=== PATIENT | male | born 1935 | race Caucasian/White ===

== ENCOUNTER → 2018-11-24 | Outpatient (CLI) | payer OTHER | LOC: HYPER 06:50 | DX: E11.622 Type 2 diabetes mellitus with other skin ulcer (principal); L97.811 Non-pressure chronic ulcer of other part of right lower leg limited to breakdown of skin; L97.821 Non-pressure chronic ulcer of other part of left lower leg limited to breakdown of skin; I87.2 Venous insufficiency (chronic) (peripheral); R60.9 Edema, unspecified; Z85.828 Personal history of other malignant neoplasm of skin; Z79.4 Long term (current) use of insulin; Z87.891 Personal history of nicotine dependence ==

== ENCOUNTER → 2018-12-09 | Outpatient (CLI) | payer OTHER | LOC: HYPER 12-01 06:51 | DX: E11.622 Type 2 diabetes mellitus with other skin ulcer (principal); L97.811 Non-pressure chronic ulcer of other part of right lower leg limited to breakdown of skin; L97.821 Non-pressure chronic ulcer of other part of left lower leg limited to breakdown of skin; I87.2 Venous insufficiency (chronic) (peripheral); R60.9 Edema, unspecified; Z79.4 Long term (current) use of insulin; Z87.891 Personal history of nicotine dependence; Z85.828 Personal history of other malignant neoplasm of skin ==

== ENCOUNTER → 2018-12-23 | Outpatient (CLI) | payer OTHER | LOC: HYPER 06:55 | DX: E11.622 Type 2 diabetes mellitus with other skin ulcer (principal); L97.821 Non-pressure chronic ulcer of other part of left lower leg limited to breakdown of skin; L97.811 Non-pressure chronic ulcer of other part of right lower leg limited to breakdown of skin; S51.012A Laceration without foreign body of left elbow, initial encounter; S51.011A Laceration without foreign body of right elbow, initial encounter; I87.2 Venous insufficiency (chronic) (peripheral); R60.9 Edema, unspecified; Z79.4 Long term (current) use of insulin; Z85.6 Personal history of leukemia; Z87.891 Personal history of nicotine dependence; X58.XXXA Exposure to other specified factors, initial encounter; Y93.89 Activity, other specified; Y92.89 Other specified places as the place of occurrence of the external cause; Y99.8 Other external cause status ==

== ENCOUNTER → 2019-01-07 | Outpatient (CLI) | payer OTHER | LOC: HYPER 06:43 | DX: E11.622 Type 2 diabetes mellitus with other skin ulcer (principal); L97.811 Non-pressure chronic ulcer of other part of right lower leg limited to breakdown of skin; L97.821 Non-pressure chronic ulcer of other part of left lower leg limited to breakdown of skin; I87.2 Venous insufficiency (chronic) (peripheral); R60.9 Edema, unspecified; Z85.6 Personal history of leukemia; Z79.4 Long term (current) use of insulin; Z87.891 Personal history of nicotine dependence ==

== ENCOUNTER → 2019-01-14 | Outpatient (CLI) | payer OTHER | LOC: HYPER 06:47 | DX: E11.622 Type 2 diabetes mellitus with other skin ulcer (principal); L97.811 Non-pressure chronic ulcer of other part of right lower leg limited to breakdown of skin; L97.821 Non-pressure chronic ulcer of other part of left lower leg limited to breakdown of skin; I87.2 Venous insufficiency (chronic) (peripheral); R60.9 Edema, unspecified; Z79.4 Long term (current) use of insulin; Z85.6 Personal history of leukemia; Z87.891 Personal history of nicotine dependence ==

== ENCOUNTER → 2019-01-21 | Outpatient (CLI) | payer OTHER | LOC: HYPER 06:39 | DX: E11.622 Type 2 diabetes mellitus with other skin ulcer (principal); L97.811 Non-pressure chronic ulcer of other part of right lower leg limited to breakdown of skin; L97.821 Non-pressure chronic ulcer of other part of left lower leg limited to breakdown of skin; I87.2 Venous insufficiency (chronic) (peripheral); R60.9 Edema, unspecified; Z79.4 Long term (current) use of insulin; Z85.6 Personal history of leukemia; Z87.891 Personal history of nicotine dependence ==

== ENCOUNTER 2019-01-28 06:47 | Inpatient (IN) | payer OTHER ==
[~2019-01-28] VITALS: Ht 167.6 cm; Wt 88.0 kg
[2019-01-28 12:04] LABS: ABSOLUTE NEUTROPHILS 4.4 thou/uL (1.4-8.2); BASOPHILS 1.1 % (0.0-2.0); EOSINOPHILS 1.8 % (0.0-3.0); HEMATOCRIT 34.3 % (42.0-52.0); HEMOGLOBIN 11.1 gm/dL (14.0-18.0); LYMPHOCYTES 8.3 % (24.0-44.0); MCH 28.4 pg (26.0-34.0); MCHC 32.5 g/dL (28.0-37.0); MCV 87.5 fL (80.0-100.0); MONOCYTES 9.1 % (1.0-8.0); PLATELET COUNT 219 thou/uL (150-400); POLYS 79.7 % (36.0-66.0); RBC 3.92 mil/uL (4.50-6.00); RDW 17.4 % (10.5-14.5); WBC 5.5 thou/uL (4.0-11.0)
[2019-01-28 12:16] VITALS: BP 132/54
[2019-01-28 12:26] LABS: ALBUMIN 2.6 g/dL (3.4-5.0); CALCIUM 8.4 mg/dL (8.5-10.1); CREATININE 1.2 mg/dL (0.7-1.3); MAGNESIUM 2.1 mg/dL (1.8-2.4); TOTAL BILIRUBIN 0.5 mg/dL (<0.1-1.0); TOTAL PROTEIN 6.5 g/dL (6.4-8.2)
[2019-01-28] MEDS ORDERED: NOVOLOG MI100 UNIT/M SUBQ ×2 (13:34→14:12)
[2019-01-28] MEDS ORDERED: VITAMINC500 PO (14:01)
[2019-01-28] MEDS ORDERED: ASPIR 8181 MG PO (14:04)
[2019-01-28] MEDS ORDERED: URECHOLINE25 MG PO (14:06)
[2019-01-28] MEDS ORDERED: PROSCAR 5MG TABL5 M1 PO (14:08)
[2019-01-28] MEDS ORDERED: FLOMAX0.4 MG PO (14:09)
[2019-01-28] MEDS ORDERED: DEMADEX20 MG PO (14:10)
[2019-01-28] MEDS ORDERED: COL-RITE250 MG PO (14:19)
[2019-01-28] MEDS ORDERED: KLOR-CON 10 ER10 MEQ PO (14:20)
--- NOTE | 2019-01-28 16:18 | 2DMMODE ---
[facility] [address] [place] [address] 2 D/M-MODE ECHOCARDIOGRAM Name: ALEA FRANKS [place] Room #: 432-P [facility] IN ..#: [id number] ������������� Admission: 01/28/19 ������������� Attend Phys: Tyler Joyce, Discharge: ��� ������������� ��� Date of : 33 Date of Service: 01/28/19 1618 �� Report #: [id number] �������� ��������������������������������������������[id number] THIS REPORT FOR: //name// APPROVED REPORT Study performed: 01/28/2019 14:46:42 EXAM: Comprehensive 2D, Doppler, and color-flow Echocardiogram Patient Location: Bedside Room #: 432 Status: routine BSA: 1.97 HR: 60 bpm BP: 132/54 mmHg Rhythm: NSR Other Information Study Quality: Adequate Indications Congestive Heart Failure Pacemaker CAD Hypertension/HDD 2D Dimensions RVDd: 59.52 mm IVSd: 13.13 (7-11mm) LVOT Diam: 20.83 (18-24mm) LVDd: 46.81 mm PWd: 12.47 (7-11mm) Ascending Ao: 33.70 (22-36mm) LVDs: 44.58 (25-40mm) Aortic Root: 30.43 mm IVC: 20.00 mm Volumes Left Atrial Volume (Systole) Single Plane 4CH: 51.00 mL Single Plane 2CH: 82.12 mL LA ESV Index: 35.00 mL/m2 Aortic Valve AoV Peak Julio.: 1.08 m/s AO Peak Gr.: 4.63 mmHg LVOT Max P.48 mmHg LVOT Max V: 0.61 m/s ANT Vmax: 1.92 cm2 Mitral Valve [facility] [address] [place] [address] 2 D/M-MODE ECHOCARDIOGRAM Name: ALEA FRANKS Room #: 432-P [facility] IN [facility]#: [id number] ������������� Admission: 01/28/19 ������������� Attend Phys: Tyler Joyce, Discharge: ��� ������������� ��� Date of : 33 Date of Service: 01/28/19 1618 �� Report #: [id number] �������� ��������������������������������������������[id number] E/A Ratio: 2.9 MV Decel. Time: 148.58 ms MV E Max Julio.: 0.97 m/s MV A Julio.: 0.34 m/s MV PHT: 43.09 ms IVRT: 83.04 ms Pulmonary Valve PV Peak Julio.: 0.71 m/s PV Peak Gr.: 2.01 mmHg Pulmonary Vein P Vein S: 0.24 m/s P Vein A: 0.14 m/s P Vein D: 0.53 m/s P Vein A Dur.: 83.0 msec P Vein S/D Ratio: 0.45 Tricuspid Valve TR Peak Julio.: 3.29 m/s TR Peak Gr.: 43.36 mmHg PA Pressure: 53.00 mmHg Left Ventricle The left ventricle is normal size. There is severe global hypokinesis of the left ventricle. Mild concentric left ventricular hypertrophy. Left ventricular ejection fraction is severely decreased. LVEF is 30-35%. Severe diastolic dysfunction is present (restrictive filling). Elevated filling pressures Right Ventricle Right ventricle is dilated. Right ventricle is hypokinetic. Pacemaker lead is present in the right ventricle. Atria Left atrium is dilated. Right atrium is dilated. Pacemaker lead is present in the right atrium. Aortic Valve Aortic valve is mildly calcified. No aortic regurgitation is present. There is no aortic valvular stenosis. Mitral Valve The mitral valve is normal in structure. Mild mitral regurgitation. No evidence of mitral valve stenosis. Tricuspid Valve The tricuspid valve is normal in structure. There is mild tricuspid regurgitation. Estimated PAP 50 mmHg. There is moderate pulmonary [address] [address] 2 D/M-MODE ECHOCARDIOGRAM Name: ALEA FRANKS Room #: 432-P [facility] IN [facility]#: [id number] ������������� Admission: 01/28/19 ������������� Attend Phys: Tyler Joyce, Discharge: ��� ������������� ��� Date of : 33 Date of Service: 01/28/19 1618 �� Report #: [id number] �������� ��������������������������������������������[id number] hypertension. Pulmonic Valve The pulmonary valve is normal in structure. Trace pulmonic regurgitation. Great Vessels The aortic root is normal in size. IVC is dilated and collapses <50% with inspiration. Pericardium There is no pericardial effusion. <Conclusion> Left ventricular ejection fraction is severely decreased. Mild concentric left ventricular hypertrophy. LVEF is 30-35%. Discordant inferolateral wall motion possibly from RV pacing Severe diastolic dysfunction is present (restrictive filling). Elevated filling pressures Right ventricle is dilated and hypokinetic Both atria are dilated. Aortic valve is mildly calcified. No aortic regurgitation or stenosis. The mitral valve is normal in structure. Mild mitral regurgitation. There is mild tricuspid regurgitation. Estimated pulmonary artery pressure of 50 mmHg. There is no pericardial effusion. ��������������������������������������������� <ELECTRONICALLY SIGNED> ���������������������������������������� By: Titus Carpio MD, FACC ��������������������������������������������� 01/28/19 1618 1618 1618 Titus Carpio MD, FACC /INF
[2019-01-28 17:01] VITALS: BP 126/53
[2019-01-28 19:37] VITALS: BP 121/58
[2019-01-29 00:33] VITALS: BP 118/57
[2019-01-29 05:06] VITALS: BP 121/48
[2019-01-29 07:49] VITALS: BP 125/57
[2019-01-29 10:09] LABS: GLYCOHEMOGLOBIN (HGB A1C) 7.5 % (4.8-5.6)
[2019-01-29 16:08] VITALS: BP 112/47
[2019-01-29 19:34] VITALS: BP 105/45
--- NOTE | 2019-01-29 22:36 | HC ---
[facility] [place] [address] CONSULTATION Name: ALEA FRANKS Room #: 432-P [facility] IN M.R.#: [id number] Admission: 01/28/19 ������������������ Attend Phys: Tyler Joyce MD Discharge: ������������������ Date of : 34 Report #: [id number] THIS REPORT FOR: //name// CC: Loly Joyce DATE OF SERVICE: 01/28/2019 REASON FOR CONSULTATION: Evaluate bilateral lower extremity cellulitis. HISTORY OF PRESENT ILLNESS: The patient is an 83-year-old with underlying history of coronary artery disease and cardiomyopathy with sick sinus syndrome, permanent pacemaker, who has had chronic venous stasis disease. Over the last 2 weeks this has significantly worsened. Has occasional chills, but no fever or sweats. Has not been on any antibiotics. Has not been using any compression. Unable to control his edema. He is on no special diet other than diabetic. No evidence of peripheral neuropathy. Had previous coronary bypass and permanent pacemaker. Due to his increased discomfort, swelling, erythema and now blistering of the skin, he was admitted for further treatment. REVIEW OF SYSTEMS: He has PND and orthopnea, dyspnea on exertion. No cough or sputum production. No chest pain. Blood sugars have been erratic with hypoglycemic episodes. No other pulmonary complaints. No GI or complaints, has degenerative arthritis, which has been stable. No other neurologic complaints. No psychiatric issues. No hematologic issues or allergy issues. Skin as noted above. ALLERGIES: PENICILLIN, LISINOPRIL, reports throat swelling with his PENICILLIN. MEDICATIONS: As noted on his OCT, which were reviewed. He did receive a dose of vancomycin on admission. PAST MEDICAL HISTORY: Hypertension, hyperlipidemia, diabetes, coronary artery disease, BPH, sick sinus syndrome, seasonal allergies, cataracts, CABG, tonsillectomy, permanent pacemaker placement. FAMILY HISTORY: Noncontributory. SOCIAL HISTORY: Nonsmoker, no significant alcohol intake. PHYSICAL EXAMINATION: VITAL SIGNS: Afebrile and hemodynamically stable. NEUROPSYCHIATRY: Alert and cooperative and pleasant, in no acute distress. He did become dyspneic when lying flat in bed. EXTREMITIES: He had 4+ edema involving the lower extremities, 3+ edema to the [facility] [address] [place] [address] CONSULTATION Name: ALEA FRANKS Room #: 432-P [facility] IN ..#: [id number] Admission: 01/28/19 ������������������ Attend Phys: Tyler Joyce MD Discharge: ������������������ Date of : 34 Report #: [id number] pelvic region. 1+ edema to his mid abdomen region and back. No palpable adenopathy. He had bilateral venous stasis dermatitis changes and cellulitis involving the circumferential lower legs bilaterally. There was some bullous formation on the right leg. EYES: Without scleral icterus. MOUTH: Without mucositis. NECK: Supple. LUNGS: Few crackles heard in the mid chest posteriorly and below. HEART: Regular without appreciable murmur. I did not appreciate a gallop or rub. ABDOMEN: Protuberant, nontender, no hepatosplenomegaly or mass. EXTREMITIES: With no cyanosis or clubbing. NEUROLOGIC: Normal speech. Cranial nerves, sensation and strength. Mood normal. BACK: Nontender. GENITOURINARY: External genitalia without lesion or rash. RECTAL: Not performed. LABORATORY STUDIES: Reviewed. Chest x-ray, pulmonary fibrosis changes, some edema. Hemoglobin 11, WBC 5.5, platelet count 219,000. Creatinine 1.2. Liver function test normal. IMPRESSION: An 83-year-old with congestive heart failure, significant peripheral edema with venous stasis dermatitis changes and cellulitis. Diabetes. RECOMMENDATION: With his reported PENICILLIN allergy, we will go with clindamycin. Continue with diuresis and diabetic control. Leg elevation for tonight and we will see how he looks tomorrow. May start compression after that. Low salt diet. Cardiovascular medicine evaluation to assist with diuresis. ��������������������������������������������� <ELECTRONICALLY SIGNED> ���������������������������������������� By: Allen Paz MD ��������������������������������������������� 01/29/19 2236 1816 [id number] Allen Paz MD /nt
[2019-01-30 04:22] VITALS: BP 95/48
[2019-01-30 05:14] LABS: HEMATOCRIT 33.6 % (42.0-52.0); HEMOGLOBIN 10.8 gm/dL (14.0-18.0); MCH 28.2 pg (26.0-34.0); MCV 88.2 fL (80.0-100.0); RBC 3.81 mil/uL (4.50-6.00); WBC 5.5 thou/uL (4.0-11.0)
[2019-01-30 05:40] LABS: CALCIUM 8.5 mg/dL (8.5-10.1); CREATININE 1.5 mg/dL (0.7-1.3); POTASSIUM 4.4 mmol/L (3.5-5.1)
[2019-01-30 07:36] VITALS: BP 123/95
--- NOTE | 2019-01-30 08:26 | HC ---
[facility] [place] [address] CONSULTATION Name: ALEA FRANKS Room #: 432-P [facility] IN M.R.#: [id number] Admission: 01/28/19 ������������������ Attend Phys: Tyler Joyce MD Discharge: ������������������ Date of : 34 Report #: [id number] THIS REPORT FOR: //name// CC: Loly Joyce DATE OF SERVICE: 01/29/2019 CHIEF COMPLAINT: Bilateral lower extremity cellulitis and lymphedema. HISTORY OF PRESENT ILLNESS: This is an 83-year-old white male patient who was admitted from the wound clinic yesterday. The patient was noted to have had increasing swelling of his lower extremities as well as a cellulitis and blistering. He was noted increasing orthopnea and dyspnea on exertion as well and was felt to be likely volume overloaded. PAST MEDICAL HISTORY: Positive for hypertension, hyperlipidemia, diabetes, coronary artery disease, sick sinus syndrome, previous placement of permanent pacemaker, benign prostatic hypertrophy and coronary artery bypass graft surgery. SOCIAL HISTORY: Negative for alcohol or tobacco use. FAMILY HISTORY: Noncontributory. MEDICATIONS: Reviewed on the OCT. He has been started on IV vancomycin. ALLERGIES: PENICILLIN, LISINOPRIL. REVIEW OF SYSTEMS: CONSTITUTIONAL: The patient denies fever, chills or weight loss. NEUROLOGICAL: The patient denies focal weakness, numbness or tingling. EYES: The patient denies visual changes, redness, or drainage. ENT: The patient denies earache, nasal drainage, sore throat. CARDIOVASCULAR: The patient denies chest pain, palpitations or diaphoresis. PULMONARY: The patient denies cough, but does have orthopnea and paroxysmal nocturnal dyspnea. He denies hemoptysis. GASTROINTESTINAL: The patient denies nausea, vomiting, diarrhea or abdominal pain. ORTHOPEDIC: The patient complains of pain, swelling, redness of his lower extremities and a blister on his right lower leg. Other systems in a 14-point review of systems are negative. PHYSICAL EXAMINATION: [facility] [address] [place] [address] CONSULTATION Name: ALEA FRANKS Room #: 432-[facility] IN [facility]#: [id number] Admission: 01/28/19 ������������������ Attend Phys: Tyler Joyce MD Discharge: ������������������ Date of : 34 Report #: [id number] VITAL SIGNS: At this time include pulse 67, respiratory rate 16, blood pressure 125/57, and temperature 97.6. GENERAL: This is a chronically ill-appearing male patient who appears to be in minimal distress. HEENT: Head normocephalic. Nose and throat are clear. NECK: Supple. LUNGS: Diminished. HEART: Regular rhythm without murmur. ABDOMEN: Soft. Bowel sounds present. EXTREMITIES: Demonstrate 3+ edema. There is a circular blister on the medial aspect of the right lower leg. It remains intact. There are nodes, specific open ulcerations, but he has significant erythema circumferentially involving the lower legs bilaterally. The feet are also swollen, but not erythematous. NEUROLOGIC: The patient is alert and moving all 4 extremities spontaneously. LABORATORY DATA: Includes sodium 142, potassium 4.0, chloride 106, CO2 of 30, BUN 24, creatinine 1.2, glucose 42. Total protein is 6.5, albumin is low at 2.6, and proBNP is 20,409. White blood cell count 5.5 with a hemoglobin 11.1, and hematocrit 34.3. Hemoglobin A1c is elevated at 7.5. Sed rate is 38. CLINICAL IMPRESSION: 1. Cellulitis, bilateral lower extremities. 2. Volume overload with bilateral lower extremity edema and possible pulmonary vascular congestion. 3. Diabetes mellitus with hypoglycemia. 4. Moderate protein-calorie malnutrition. RECOMMENDATIONS: At this point in time, the patient will be started with topical Xeroform gauze to protect his skin. We will recommend light compression with Heron wraps as tolerated, being careful not to displace too much of the third space fluid into his central circulation at least early on. His permanent pacemaker will be interrogated. He will likely have ongoing diuresis while here. Elevation of his legs when possible. We will recommend continuation of his home medications. He also will be started on empiric antibiotic therapy. I appreciate being asked to see him in consultation. ��������������������������������������������� <ELECTRONICALLY SIGNED> ���������������������������������������� By: Daniel Gresham MD ��������������������������������������������� 01/30/19 0826 1535 1846 Daniel Gresham MD /nt
[2019-01-30 19:50] VITALS: BP 111/49
[2019-01-31 03:50] VITALS: BP 123/63
[2019-01-31 08:26] VITALS: BP 129/50
[2019-01-31 13:40] LABS: CALCIUM 8.5 mg/dL (8.5-10.1); CREATININE 1.8 mg/dL (0.7-1.3); POTASSIUM 4.4 mmol/L (3.5-5.1)
[2019-01-31 16:26] VITALS: BP 119/50
[2019-01-31 19:32] VITALS: BP 114/53
[2019-02-01 05:22] VITALS: BP 117/53
[2019-02-01 07:19] VITALS: BP 107/45
[2019-02-01 12:00] LABS: CALCIUM 8.8 mg/dL (8.5-10.1); CREATININE 1.8 mg/dL (0.7-1.3); POTASSIUM 4.1 mmol/L (3.5-5.1)
[2019-02-01 16:34] VITALS: BP 119/47
[2019-02-01 19:31] VITALS: BP 124/63
[2019-02-02 04:53] VITALS: BP 113/52
[2019-02-02 06:16] LABS: HEMATOCRIT 36.8 % (42.0-52.0); HEMOGLOBIN 11.9 gm/dL (14.0-18.0); MCH 28.6 pg (26.0-34.0); MCHC 32.4 g/dL (28.0-37.0); RBC 4.18 mil/uL (4.50-6.00); RDW 17.5 % (10.5-14.5); WBC 5.4 thou/uL (4.0-11.0)
[2019-02-02 06:28] LABS: CALCIUM 8.9 mg/dL (8.5-10.1); CREATININE 1.7 mg/dL (0.7-1.3)
[2019-02-02 08:19] VITALS: BP 91/47
[2019-02-02 17:57] VITALS: BP 108/52
[2019-02-02 22:40] VITALS: BP 124/80
[2019-02-03 03:28] LABS: HEMATOCRIT 34.7 % (42.0-52.0); HEMOGLOBIN 11.4 gm/dL (14.0-18.0); MCH 28.6 pg (26.0-34.0); MCHC 32.8 g/dL (28.0-37.0); MCV 87.4 fL (80.0-100.0); RBC 3.97 mil/uL (4.50-6.00); RDW 17.4 % (10.5-14.5); WBC 4.2 thou/uL (4.0-11.0)
[2019-02-03 03:40] LABS: CALCIUM 8.9 mg/dL (8.5-10.1); CREATININE 1.9 mg/dL (0.7-1.3)
[2019-02-03 04:30] VITALS: BP 114/52
[2019-02-03 08:39] VITALS: BP 115/50
[2019-02-03] MEDS ORDERED: DOXYCYCLINE HYC50 MG PO (12:54)
[2019-02-03 13:12] VITALS: BP 115/50
[2019-02-03 14:48] VITALS: BP 115/50
== END 2019-02-03 15:10 | disposition home or self-care (01) | DRG 602 ==
LOC: HYPER 06:47 → 4E 10:19 → ENTRNSPT 02-03 15:07 → EDTRNSPTSTS 02-03 15:08 → 4E 02-03 15:10
PROVIDERS: Hospitalist; Nurse Practitioner; ADMIT Hospitalist
DX: L03.116 Cellulitis of left lower limb (principal); I50.43 Acute on chronic combined systolic (congestive) and diastolic (congestive) heart failure; I42.9 Cardiomyopathy, unspecified; E44.0 Moderate protein-calorie malnutrition; L03.115 Cellulitis of right lower limb; I50.9 Heart failure, unspecified; I25.10 Atherosclerotic heart disease of native coronary artery without angina pectoris; I49.5 Sick sinus syndrome; E78.5 Hyperlipidemia, unspecified; E11.9 Type 2 diabetes mellitus without complications; N40.0 Benign prostatic hyperplasia without lower urinary tract symptoms; I87.2 Venous insufficiency (chronic) (peripheral); I11.0 Hypertensive heart disease with heart failure; E87.70 Fluid overload, unspecified; Z66 Do not resuscitate; E11.649 Type 2 diabetes mellitus with hypoglycemia without coma; Z68.31 Body mass index [BMI] 31.0-31.9, adult; Z79.82 Long term (current) use of aspirin; Z95.0 Presence of cardiac pacemaker; Z88.0 Allergy status to penicillin; Z88.8 Allergy status to other drugs, medicaments and biological substances; Z98.49 Cataract extraction status, unspecified eye; Z95.1 Presence of aortocoronary bypass graft; Z79.899 Other long term (current) drug therapy
CPT/HCPCS: 10783

== ENCOUNTER 2019-02-09 10:43 | Inpatient (IN) | payer OTHER ==
[~2019-02-09] VITALS: Ht 167.6 cm; Wt 75.3 kg
--- NOTE | ~2019-02-09 | HC ---
[facility] [place] [address] CONSULTATION Name: ALEA FRANKS Room #: 201-P [facility] IN ..#: [id number] Admission: 02/09/19 ������������������ Attend Phys: Ja Reeder MD Discharge: ������������������ Date of : 34 Report #: [id number] THIS REPORT FOR: //name// CC: Loly Reeder DATE OF SERVICE: 02/11/2019 HISTORY OF PRESENT ILLNESS: The patient is an 83-year-old white male, who was admitted with bilateral lower extremity edema and cellulitis. He is noted to have severe cardiac diastolic dysfunction with acute on chronic systolic heart failure. He has significant lower extremity edema. He is being diuresed and closely monitored by Cardiology. He is noted to have shortness of breath, dyspnea on exertion, orthopnea, and PND. Wound care is involved regarding his lower extremity cellulitis bilaterally. He does have moderate protein-calorie malnutrition. He is receiving lymphedema wraps. He has medical complexity with generalized debilitation and has had a decline in his overall function and we are seeing him in rehabilitation medicine consultation. PAST MEDICAL HISTORY: Includes sick sinus syndrome with a pacemaker in place. He does have a history of hypertension, hyperlipidemia, diabetes mellitus, coronary artery disease, BPH, seasonal allergies, CABG x 5, and permanent pacemaker. MEDICATIONS: Please see the full medication listing. This includes vitamins, herbals, and supplements. ALLERGIES: LISINOPRIL, PENICILLIN. HABITS: No history of tobacco or alcohol abuse. SOCIAL HISTORY: The patient lives with his , no steps, they have a stair glide inside. Premorbid cane versus walker ambulator. REVIEW OF SYSTEMS: No current complaints of chest pain. He does have shortness of breath with increasing activity. No abdominal discomfort. He has some frustration with the lower extremity swelling and edema. PHYSICAL EXAMINATION: GENERAL: The patient is an 83-year-old white male, in no obvious distress. VITAL SIGNS: Last recorded temperature is 97.5, pulse is 58, respirations 18, and blood pressure is 119/52. He is alert, follows basic 1 step commands. HEENT: Facies are symmetric. EXTREMITIES: He has functional range of motion of both upper extremities with strength grade 4-/5. DTRs are trace to 1. Lower extremities, bilateral lower extremities are wrapped. He has significant lower extremity edema. Probably at [address] [address] CONSULTATION Name: ALEA FRANKS Room #: 201-P [facility] IN ..#: [id number] Admission: 02/09/19 ������������������ Attend Phys: Ja Reeder MD Discharge: ������������������ Date of : 34 Report #: [id number] least 3+. Strength is a grade 4- to 3+/5. Functionally, he was min assist with sit to stand and ambulated better today 140 feet min assist with a front-wheeled walker. In occupational therapy, he was min assist bathing. ASSESSMENT: The patient is an 83-year-old white male with the following problem list: 1. Medical complexity with generalized debilitation. 2. Acute on chronic systolic heart failure. 3. Bilateral lower extremity cellulitis. 4. Coronary artery disease with history of coronary artery bypass grafting. 5. Sick sinus syndrome with pacemaker in place. 6. Venous insufficiency. 7. Moderate protein-calorie malnutrition. 8. Diabetes mellitus type 2. PLAN: He is improving as far as his functional mobility and is starting to ambulate better with the walker. He is hoping to go directly home and does not desire an acute in-hospital inpatient rehabilitation stay. Hopefully, as he further improves and with continued diuresis and improving endurance, he will be able to return directly home with home health care. At this point, we will be glad to follow along with you as a backup plan and see how he does. ��������������������������������������������� ���������������������������������������� By: ��������������������������������������������� 1551 0237 Popeye Santana MD /PMT
[~2019-02-09 10:43] MED LIST changes: -COLACE100 MG PO; -LIPITOR40 MG PO; -NOVOLOG MI100 UNIT/M SUBQ; -URECHOLINE 10 M10 M1 PO
[2019-02-09 10:44] VITALS: BP 130/66
[2019-02-09] MEDS ORDERED: COLACE100 MG PO (10:53)
[2019-02-09] MEDS ORDERED: URECHOLINE 10 M10 M1 PO (10:53)
[2019-02-09 11:08] LABS: HEMATOCRIT 36.7 % (42.0-52.0); HEMOGLOBIN 12.1 gm/dL (14.0-18.0); MCH 28.9 pg (26.0-34.0); MCHC 32.9 g/dL (28.0-37.0); MCV 87.8 fL (80.0-100.0); PLATELET COUNT 218 thou/uL (150-400); RBC 4.18 mil/uL (4.50-6.00); RDW 17.8 % (10.5-14.5); WBC 6.2 thou/uL (4.0-11.0)
[2019-02-09 11:18] LABS: CALCIUM 8.8 mg/dL (8.5-10.1); CREATININE 1.3 mg/dL (0.7-1.3); POTASSIUM 4.3 mmol/L (3.5-5.1)
[2019-02-09 11:26] LABS: ALBUMIN 2.5 g/dL (3.4-5.0); TOTAL BILIRUBIN 0.8 mg/dL (<0.1-1.0); TROPONIN-I 0.18 ng/mL (<0.06)
[2019-02-09 11:30] LABS: PLATELET ESTIMATE NORMAL
[2019-02-09 16:59] VITALS: BP 131/59
[2019-02-09 17:19] VITALS: BP 138/61
[2019-02-09 17:30] VITALS: BP 120/65
[2019-02-09] MEDS ORDERED: LIPITOR40 MG PO (18:39)
[2019-02-09 19:52] VITALS: BP 138/51
--- NOTE | 2019-02-09 19:52 | NUR ---
PT RECEIVED FROM ER VSS 100% V PACED, LUNGS WITH FINE CRACKLES, O2 SAT RA IS 91%, NURSING ASSESSEMENT AND HISTORY RECEIVED AND MEDS RECONCILED. WILL CONTINUE TO MONITER AND CARE FOR PTPER PLAN OF CARE
[2019-02-10 04:03] LABS: CREATININE 1.1 mg/dL (0.7-1.3); MAGNESIUM 1.5 mg/dL (1.8-2.4); POTASSIUM 3.9 mmol/L (3.5-5.1)
[2019-02-10 04:42] VITALS: BP 107/43
--- NOTE | 2019-02-10 07:05 | NUR ---
PT SLEPT IN RECLINER ALL NIGHT DUE TO BREATHING ISSUES. DOES HAVE A REDDENED COCCYX- BRING IN FOAM DOUGHNUT FROM HOME. BS WAS LOW THIS AM. APPLE JUICE GIVEN. PT MAINLY ASYPTOMATIC. DIURESISING WELL FROM LASIX. REMAINS ON RA, STATES BREATHING EASIER. MG LEVEL LOW-REPLACEMENT INFUSING. CONT TO PROGRESS TOWARD GOALS
[2019-02-10 09:15] VITALS: BP 108/43
[2019-02-10 12:00] VITALS: BP 121/50
--- NOTE | 2019-02-10 12:49 | EKG ---
[place] [address] [facility] [place] [address] ELECTROCARDIOGRAM REPORT Name: ALEA FRANKS Room #: 201-P [facility] IN M.R.#: [id number] ������������������ Admission: 02/09/19 ������������������ Attend Phys: Ja Reeder MD Discharge: ������������������ Date of : 34 Report #: [id number] ����������������������������������������������������������������� [id number] THIS REPORT FOR: //name// [facility] ED Test Date: 2019-02-09 Test Time: 10:56:13 Pat Name: ALEA FRANKS Department: Room: [facility] Gender: M 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 : 1935 Requested By: Joellen Rosas Order Number: [id number] MD: Titus Carpio Measurements Intervals [place] Rate: 72 P: 18 GA: 57 QRS: -57 QRSD: 177 T: 127 QT: 491 QTc: 538 Interpretive Statements Ventricular-paced complexes No further analysis attempted due to paced rhythm No previous ECG available for comparison Electronically Signed On 02-10-2019 12:49:41 CDT by Titus Carpio [email or web address] ��������������������������������������������� <ELECTRONICALLY SIGNED> ���������������������������������������� By: Titus Carpio MD, [facility] ��������������������������������������������� 02/10/19 1249 1056 105 Titus Carpio MD, [facility] /EPI
--- NOTE | 2019-02-10 15:49 | NUR ---
VSS REMAINS 100% V PACED, PT DID HAVE 1 EPISODE OF 12 BT RUN WIDE COMPLEX TACHY, ASYMPTOMATIC. DONAL BLACK AWARE. LUNGS DIMINISHED O2 SAT RA IS 93%, LEFS REMAIN EDEMATOUS, NOW WRAPPED WITH ABIGAIL BY PT. UP IN CHAIR, NEEDS 1 MAX ASSIST TO STAND AND SIT IN CHAIR. WILL CONTINUE TO MONITER AND CARE FOR PT PER PLAN OF CARE
[2019-02-10 16:00] VITALS: BP 128/51
--- NOTE | 2019-02-10 17:12 | NUR ---
met with patient and . Recent dc home 02/03/19. Patient dc home with outpatient therapy at [facility]. patient uses a RW at home. Stair glide in home where all needs on one level. Discussed post acute care and patient and adamently refuse. Plan to return home with outpatient therapy to resume. Patient sees outpatient wound care.
[2019-02-10 20:10] VITALS: BP 107/64
--- NOTE | 2019-02-11 02:43 | NUR ---
PT A/O X 3.DENIES PAIN AND SOB INITIALLY BUT LATER DURING THE SHIFT PT COMPLAINED OF SOB.PLACED ON O2 2L NASAL CANNULA AND PT FELT BETTER.PT CHOSE TO SLEEP ON THE RECLINER.PT COMPLAIN OF ABIGAIL WRAP BEING TOO TIGHT.PLACED PATIENT LEG UP AND PATIENT FELT BETTER.SHOOK TO DD.NO OTHER COMPLAIN.WILL MONITOR AND CONTINUE POC.
[2019-02-11 04:01] LABS: CALCIUM 8.1 mg/dL (8.5-10.1); CREATININE 1.2 mg/dL (0.7-1.3); POTASSIUM 3.9 mmol/L (3.5-5.1)
[2019-02-11 04:45] VITALS: BP 111/76
[2019-02-11 08:34] VITALS: BP 119/52
--- NOTE | 2019-02-11 08:38 | HC ---
[facility] [place] [address] CONSULTATION Name: ALEA FRANKS Room #: 201-P [facility] IN ..#: [id number] Admission: 02/09/19 ������������������ Attend Phys: Ja Reeder MD Discharge: ������������������ Date of : 34 Report #: [id number] THIS REPORT FOR: //name// CC: Loly Reeder DATE OF SERVICE: 02/10/2019 PERSONAL PHYSICIAN: Not on staff. CHIEF COMPLAINT: Lower extremity edema with a history of previous cellulitis. HISTORY OF PRESENT ILLNESS: This is an 83-year-old white male with long-standing history of coronary artery disease and congestive heart failure, who was seen by myself in the wound clinic yesterday for follow up of recent cellulitis and leg edema. The patient, while in clinic, was noted to be severely dyspneic and had had approximately 15-pound weight gain in the past several days. At that time, it was felt the patient was in congestive heart failure. The patient had significant lower extremity edema; however, did not appear to be cellulitic. The patient was sent to the Emergency Department at that time for evaluation and admission for diuresis. The patient, this morning, states he has urinated significant amount and states he feels remarkably better. The patient's legs are also less swollen. The patient has been sleeping in a recliner with his legs elevated. The patient denies chest pain. The patient states he has no pain in his legs at this time. The patient denies fevers or chills. We have been asked to see the patient for continued control of his leg edema. PAST MEDICAL HISTORY: Significant for hypertension, hyperlipidemia, diabetes mellitus, coronary artery disease with 5-vessel bypass, sick sinus syndrome, status post pacemaker placement. CURRENT MEDICATIONS: Multiple, I reviewed the patient's medication list. DRUG ALLERGIES: PENICILLIN and LISINOPRIL. SOCIAL HISTORY: The patient does not smoke or drink alcohol, lives at home independently with his . FAMILY HISTORY: Not pertinent to current medical condition. REVIEW OF SYSTEMS: CONSTITUTIONAL: The patient denies fevers or chills. NEUROLOGIC: The patient complains of overall generalized weakness, but no isolated weakness in arms or legs. EYES: No complaints. [address] [address] CONSULTATION Name: ALEA FRANKS Room #: 201-P [facility] IN ..#: [id number] Admission: 02/09/19 ������������������ Attend Phys: Ja Reeder MD Discharge: ������������������ Date of : 34 Report #: [id number] ENT: No complaints. CARDIAC: The patient has chronic lower extremity edema, greater in the past several days with a 15-pound weight gain. No chest pain or palpitations. RESPIRATORY: The patient complains of orthopnea, dyspnea on exertion, and generalized shortness of breath but no cough. GASTROINTESTINAL: The patient denies nausea, vomiting or abdominal pain. GENITOURINARY: The patient denies urgency or frequency. MUSCULOSKELETAL: No complaints. SKIN: The patient has chronic stasis dermatitis and excoriation of his gluteal region, which are chronic. PHYSICAL EXAMINATION: VITAL SIGNS: Temperature 36.7, pulse 75, respirations 18, BP 108/43. GENERAL: This alert and oriented x 3, pleasant elderly white male who is in no obvious distress at this time. HEENT: Normocephalic, atraumatic. Mucous membranes are moist. Pupils are round. Sclerae white. NECK: Supple, there is positive JVD. LUNGS: Diminished breath sounds heard throughout. HEART: Regular. ABDOMEN: Soft, nontender. There is some edema in his lower abdominal wall without signs of cellulitis. EXTREMITIES: The patient has 3-4+ edema bilateral lower extremities with stasis dermatitis changes, but no signs of increased warmth, tenderness or drainage. Distal pulses are 1+, bilateral feet and toes are intact without open ulcerations. Gluteal area has excoriations, but no pressure ulcerations. NEUROLOGIC: Cranial nerves 2-12 grossly intact. Motor and sensory grossly intact. LABORATORY DATA: White count 6.2, hemoglobin 12.1, BUN 30, creatinine 1.1. Albumin is 2.5. BNP was 26,301. Chest x-ray shows stable diffuse infiltrates. WOUND CARE COURSE: At this time, we will start the patient on ammonium lactate to the bilateral lower extremities; cover with Xeroform, ABDs, Kerlix and Heron from toes to knee. The patient will continue with elevation of his legs at all times. We will use barrier cream to the gluteal area for excoriations. We will make sure we maximize the patient's protein supplementation for healing. IMPRESSION: 1. Chronic venous insufficiency with edema, but no signs of cellulitis. 2. Venous stasis dermatitis in bilateral lower extremities. 3. Protein-calorie malnutrition -- severe with albumin 2.5. 4. Congestive heart failure. 5. Generalized debility. [facility] [address] [place] [address] CONSULTATION Name: ALEA FRANKS Room #: 201-P ADM IN .R.#: [id number] Admission: 02/09/19 ������������������ Attend Phys: Ja Reeder MD Discharge: ������������������ Date of : 34 Report #: [id number] PLAN: Described in length as above. Cardiology is seeing the patient as well and is monitoring the diuresis on this patient. ��������������������������������������������� <ELECTRONICALLY SIGNED> ���������������������������������������� By: Tyler Joyce MD ��������������������������������������������� 02/11/19 0838 [id number] Tyler Joyce MD /nt
--- NOTE | 2019-02-11 10:03 | NUR ---
if patient to dc over weekend he does not want care or skilled. He plans to continue his outpatient therapy [facility]. [phone] fax [phone]. please obtain orders for outpatient therapy and fax orders.
--- NOTE | 2019-02-11 14:54 | NUR ---
PATIENT SEEN BY DR. DUMONT THIS DATE FOR CONSULTATION. PATIENT IS NOT INTERESTED IN COMING TO ACUTE REHAB AT THIS TIME. PATIENT PREFERS TO RETURN TO HIS HOME. ACUTE REHAB MAY BE A OPTION FOR THE PATIENT IF PATIENT CHANGES HIS MIND AND FEELS HE NEEDS FURTHER THERAPY BEFORE RETURNING TO HIS HOME. [facility] [employer] NUMBER IS [phone]. PLEASE CALL [facility] ([facility]) IF ACUTE REHAB IF NEEDED.
[2019-02-11 16:00] VITALS: BP 113/57
--- NOTE | 2019-02-11 16:11 | NUR ---
PT CARE ASSUMED AT 0700. PT ALERT AND ORIENTED X4. VSS. REPORTED PAIN THE RLE THIS AM BUT SOON AFTER DENIED. PT AWARE THAT PRN TYLENOL ON OCT. DENIES SOA. UP WITH MIN ASSIST. BS ELEVATED. SSI USED TO MANAGE. PT TOLERATING POC. URINARY CATH IN PLACE. PATENT. PT TO CHAIR AND NEVER TO BED. REFUSES TO GO TO BED EVEN WHEN HOB ELEVATED. CV ANP INTERROGATED PACEMAKER. RESULTS TO CHART. LYMPHEDEMA WRAPS IN PLACE. NO DISTRESS NOTED THIS SHIFT.
[2019-02-11 19:04] VITALS: BP 112/53
--- NOTE | 2019-02-12 03:28 | NUR ---
DENIES PAIN.PT HAD ONE EPISODE OF SOB.PT FELT BETTER AFTER PLACING MORE PILLOWS BEHIND HIS BACK.O2 1L NASAL CANNULA.WILL MONITOR AND CONTINUE POC.
[2019-02-12 03:36] LABS: HEMATOCRIT 34.4 % (42.0-52.0); HEMOGLOBIN 11.3 gm/dL (14.0-18.0); MCH 28.8 pg (26.0-34.0); MCHC 32.8 g/dL (28.0-37.0); MCV 87.6 fL (80.0-100.0); RBC 3.93 mil/uL (4.50-6.00); RDW 17.7 % (10.5-14.5); WBC 4.6 thou/uL (4.0-11.0)
[2019-02-12 03:46] LABS: ANION GAP 3 mmol/L (7-16); BUN 33 mg/dL (7-18); CALCIUM 8.2 mg/dL (8.5-10.1); CHLORIDE 100 mmol/L (98-107); CHOLESTEROL 107 mg/dL (<200); CO2 35 mmol/L (21-32); CREATININE 1.2 mg/dL (0.7-1.3); GLUCOSE 134 mg/dL (74-106); HDL CHOLESTEROL 44 mg/dL (>40); LDL CHOLESTEROL 52 mg/dL (<100); POTASSIUM 4.1 mmol/L (3.5-5.1); SODIUM 138 mmol/L (136-145); TC:HDL 2.4 Ratio (Not establshd); TRIGLYCERIDE 55 mg/dL (<150); VLDL 11 mg/dL (<40)
[2019-02-12 03:58] LABS: SERUM ASSESSMENT Clear
[2019-02-12 04:13] VITALS: BP 107/53
[2019-02-12 06:28] VITALS: BP 107/53
[2019-02-12 07:45] VITALS: BP 107/47
--- NOTE | 2019-02-12 09:27 | EKG ---
[place] [address] [facility] [place] [address] ELECTROCARDIOGRAM REPORT Name: ALEA FRANKS Room #: 201-P ADM IN M.R.#: [id number] ������������������ Admission: 02/09/19 ������������������ Attend Phys: Ja Reeder MD Discharge: ������������������ Date of : 34 Report #: [id number] ����������������������������������������������������������������� [id number] THIS REPORT FOR: //name// [facility] Test Date: 2019-02-11 Test Time: 07:56:07 Pat Name: ALEA FRANKS Department: Room: 201 Gender: M Director Funds Development: AUBRIE : 1935 Requested By: Crissy Everett Order Number: [id number] MD: Titus Carpio Measurements Intervals [place] Rate: 64 P: 0 MN: 64 QRS: -61 QRSD: 181 T: 131 QT: 529 QTc: 546 Interpretive Statements Ventricular-paced complexes No further analysis attempted due to paced rhythm Compared to ECG 02/09/2019 10:56:13 No significant changes Electronically Signed On 02-12-2019 9:27:48 CDT by Titus Carpio [email or web address] ��������������������������������������������� <ELECTRONICALLY SIGNED> ���������������������������������������� By: Titus Carpio MD, [facility] ��������������������������������������������� 02/12/19 0927 [id number] [id number] Titus Carpio MD, [facility] /EPI
[2019-02-12 11:10] VITALS: BP 108/53
--- NOTE | 2019-02-12 13:43 | NUR ---
VSS-AFEBRILE. C/O RIGHT LEG PAIN THAT PATIENT BELIEVES IS ATTRIBUTED TO HIS LYMPHADEMA WRAPS BEING TOO TIGHT. UNWRAPPED WRAPS PER DR ROSAS, AND RE-WRAPPED WITH PAIN SUBSIDING. REMAINS EDEMATOUS (3+), NO VISIBLE OPEN WOUNDS, WARM TO TOUCH, ABLE TO WIGGLE TOES. OOB WITH 1 ASSIST AND WALKER TO USE THE RESTROOM, MODERATE, BROWN, LOOSE STOOL. FALL PRECAUTIONS IN PLACE, CALLS APPROPRIATELY FOR ANY NEEDED ASSISTANCE. TOLERATED MEALS WELL. IV PATENT WITH NO S/S OF INFECTION. ADEQUATE AMOUNT OF CLOUDY YELLOW URINE TO DEPENDENT DRAINAGE BAG.
[2019-02-12 15:20] VITALS: BP 110/55
[2019-02-12 20:11] VITALS: BP 111/55
--- NOTE | 2019-02-13 00:35 | NUR ---
ASSUMED PT CARE 1899. PT ALERT AND ORIENTED. REASSESSMENT COMPLETE. VSS. IV DRESSING C/D/I. BILAT LE DRESSING C/D/I. BOARDER FOAM PLACED ON R ELBOW, PT HIT ELBOW ON CHAIR AND PREVIOUS TEAR STARTED BLEEDING AGAIN. ASSISTED TO JACY, MEDIUM BM. PT REQUESTED TO SLEEP IN CHAIR, SITTING UP FOR BETTER BREATHING. DENIES PAIN, DENIES N/V. CALL LIGHT WITHIN REACH. WILL CONTINUE POC UNTIL EOS.
[2019-02-13 05:00] VITALS: BP 102/48
[2019-02-13 05:17] LABS: CREATININE 1.3 mg/dL (0.7-1.3)
[2019-02-13 07:10] VITALS: BP 115/53
--- NOTE | 2019-02-13 08:43 | NUR ---
ASSUMED CARE OF PT APPROX 0715, WHEN PASSING MEDICATIONS. NO APPETITE THIS A.M. HE SAID HE THREW IT UP AND THAT THIS IS COMMON AT HOME SOMETIMES. OFERRED ANTIEMETIC HE DECLINED. HAS AARON UE SKIN ISSUES COVERED W/BRUISING, AND MEPILEX ON BUE, SAID THIS IS A CHRONIC ISSUE, BLE WRAPPED, HE IS A&0X4, ON 1L [id number]%, LET HIM KNOW WE'D WALK WITH HIM AND SEE HOW HE DOES OF 02. REPORT OF NO DESAT YET BECOMING HIGHLY ANXIOUS OFF 02 WIH TRIP TO THE BATHROOM. DOES NOT WEAR 02 AT HOME. DENIES ANY NEED FOR TYLENOL. LET HIM KNOW WE HAD SNACKS SHOULD HE BECOME HUNGRY IN BETWEEN MEALS, CARDIAC MONITORED AND ACCU CHECKS. ENCOURAGED PT TO USE CALL LIGHT FOR ANY NEEDS
[2019-02-13 11:50] VITALS: BP 113/50
[2019-02-13 15:50] VITALS: BP 112/53
[2019-02-13 19:07] VITALS: BP 115/58
[2019-02-14 04:23] VITALS: BP 106/55
--- NOTE | 2019-02-14 06:09 | NUR ---
ASSUME CARE 1900. PT/VITALS STABLE INTERMITTENT LEFT ANKLE PAIN NOTED. TYLENOL FOR RELIEF. UP WITH ASSISTANCE. TOLERATES ACTIVITY MODERATELY. ASSEMMENT CHARTED. PROGRESSING WELL WITH POC. PLAN IS TO CONTINUE TO DIURESE PATIENT. WILL CONTINUE TO MONITOR AND FOLLOW WIHT POC
[2019-02-14 07:20] VITALS: BP 113/53
[2019-02-14 10:54] LABS: CALCIUM 8.5 mg/dL (8.5-10.1); CREATININE 1.7 mg/dL (0.7-1.3); POTASSIUM 4.2 mmol/L (3.5-5.1)
[2019-02-14 11:30] VITALS: BP 113/56
[2019-02-14 15:55] VITALS: BP 106/51
--- NOTE | 2019-02-14 19:05 | NUR ---
ASSUMED CARE AT SHIFT CHANGE, ALERT AND ORIENTED AND FORGETFUL. VPACED ON THE MONITOR AND VSS. ONLY 550 ML FOR URINE OUTPUT TODAY, AND PATIENT REPORT NO PAIN. WILL CONTINUE WITH POC.
[2019-02-14 21:15] VITALS: BP 91/46
[2019-02-15 05:29] VITALS: BP 105/52
--- NOTE | 2019-02-15 05:30 | NUR ---
ASSUME CARE 1900. PT/VITALS STABLE. INTERMITTENT PAIN IN LEFT ANKLE. TYLENOL FOR PAIN RELIEF. ASSESMETN CHARTED. PROGRESSING MODERATELY TOWARDS POC. VERY POOR URINE OUTPUT. PT ON 180MG LASIX A DAY/FLOMAX. VERY POOR URINE NOTED. VISCOSE DEPARTMENT WORKER INFORMED. CARDIOLGY TO BE NOTIFIED BEFORE NEXT DOSE OF LASIX TO SEE IF THEY WANT THE LASIX IV GIVEN OR CHANGED TO PO. WILL CALL CARDIOLOGY IN AM AND PASS ON TO DAY SHIFT WHETHER OR NOT TO CONTINUE WITH IV LASIX. WILL CONTINUE TO MONITRO AND FOLLOW WITH POC
[2019-02-15 05:50] LABS: CALCIUM 8.3 mg/dL (8.5-10.1); CREATININE 1.7 mg/dL (0.7-1.3); POTASSIUM 4.6 mmol/L (3.5-5.1)
[2019-02-15 07:05] VITALS: BP 119/44
[2019-02-15 11:15] VITALS: BP 101/47
[2019-02-15 15:50] VITALS: BP 95/45
--- NOTE | 2019-02-15 18:13 | NUR ---
PATIENT ALERT AND ORIENTED, NO COMPLAINTS OF PAIN, ON 2L O2 NASAL CANNULA, VSS, AT BEDSIDE, PATIENT TOOK SHOWER, BLE WRAPPED. WILL CONTINUE TO FOLLOW POC.
[2019-02-15 20:15] VITALS: BP 116/59
[2019-02-16 03:41] LABS: CALCIUM 8.3 mg/dL (8.5-10.1); CREATININE 1.9 mg/dL (0.7-1.3); POTASSIUM 4.4 mmol/L (3.5-5.1)
[2019-02-16 04:15] VITALS: BP 112/53
--- NOTE | 2019-02-16 04:39 | NUR ---
ASSUME CARE 190. PT/VITALS STABLE. DENEIS ANY PAIN. MODERATE ACTIVITY TOLERANCE. ADEQUATE REST NOTED THROUGH SHIFT. VPACED ON MONITOR. ASSESSMETN CHARTED. PROGRESING WITH POC. URINE OUTPUT HAS INCREASED TREMENDOUSLY WITH DEMADEX ON BOARD. PLAN IS TO CONTINUE TO DIURESE PATIENT AND MONITOR KIDNEY FUNCTION. WILL CONTINUE TO FOLLO WWIHT POC
[2019-02-16 08:41] VITALS: BP 100/65
--- NOTE | 2019-02-16 10:45 | NUR ---
Assess for length of stay, Admit with acute/chronic CHF. Anasarca/lymphedema noted. Pt reports usual wt trends 175 lb but has increased over 200 lb (standing wt confirmed). Need for diuresis. Appetite starting to improve. provides assist with ordering. Requesting chopped meats since dentures are at home. Low nutrition risk
[2019-02-16 12:06] VITALS: BP 97/44
--- NOTE | 2019-02-16 14:36 | NUR ---
PATIENT CARE ASSUMED AT 7AM, ASSESSMENT CHARTED, VSS, LYMPHEDEMA WRAPS TO BILATERAL LE, NO COMPLAINTS OF PAIN, WILL CONTINUE TO MONITOR
[2019-02-16 20:05] VITALS: BP 111/50
[2019-02-17] VITALS (7 sets, daily range): BP systolic 95–135; BP diastolic 47–85
[2019-02-17 04:05] LABS: ALBUMIN 2.3 g/dL (3.4-5.0); CALCIUM 8.7 mg/dL (8.5-10.1); CREATININE 1.8 mg/dL (0.7-1.3); PHOSPHORUS 4.1 mg/dL (2.5-4.9); POTASSIUM 3.7 mmol/L (3.5-5.1)
--- NOTE | 2019-02-17 06:31 | NUR ---
ASSUME CARE 1900. PT/VITALS STABLE. DENIES ANY PAIN. TOLERATING ACTIVITY BETTER. UP TO BATHROOM WITH 1 ASSIST AND WALKER. ADEQUATE REST NOTED THROGUH NIGHT. VPACED ON MONITOR. ADEQUATE UINE OUTPUT NOTED. PLAN IS TO CONTINUE TO DIURRESE PT AD MANAGE KIDNEY FUCTION. GLADIS CONTINUE TO MONITOR AND FOLLOW WITH POC
--- NOTE | 2019-02-17 16:34 | NUR ---
spoke with patient and who prev wanted dc home with outpatient therapy. Today reports they are interested in post acute care. 5n to reevaluate in am they have post acute list to reivew. [facility] has no beds avail. family to review list for post acute care for another option if 5n not avail.
--- NOTE | 2019-02-17 17:47 | NUR ---
ASSUMED CARE OF PT AT SHIFT CHANGE. ASSESSMENTS CHARTED. MEDS GIVEN PER OCT. PT ALERT AND ORIENTED, VSS, DENIES PAIN, UP X1 ASSIST WITH WALKER TOLERATING WELL. PT DIURESING ADEQUATELY. LEGS CONTINUE TO BE WRAPPED. O2 WNL ON ROOM AIR, DENIES SOB. VPACED ON MONITOR. PT PROGRESSING TOWARD POC. CONTINUING TO MONITOR.
--- NOTE | 2019-02-18 03:44 | NUR ---
RECEIVED PT'S CARE AT 1900; PT. ON CHAIR SLEEPING; DURING ASSESSMENT PT. AWAKE; NO C/O PAIN; AOX4; REQUESTED TO STAY ON CHAIR; DURING THE NIGHT ABLE TO REST WITH EYES CLOSE; AT 0335 REQUESTED TO BE RE-POSITIONED ON THE CHAIR; BARRIER CREAM APPLIED; C/O PAIN OVER BUTTOCKS; RED; NON BLANCHABLE; ASSESSMENT CHARGED; FOLLOWING POC; MONITORING; WILL PASS ON REPORT.
[2019-02-18 04:29] LABS: ALBUMIN 2.3 g/dL (3.4-5.0); CALCIUM 8.5 mg/dL (8.5-10.1); CREATININE 1.7 mg/dL (0.7-1.3); PHOSPHORUS 3.2 mg/dL (2.5-4.9); POTASSIUM 3.2 mmol/L (3.5-5.1)
[2019-02-18 04:55] VITALS: BP 106/49
[2019-02-18 04:56] LABS: HEMOGLOBIN 11.6 gm/dL (14.0-18.0); MCH 28.9 pg (26.0-34.0); MCV 87.5 fL (80.0-100.0); RDW 17.7 % (10.5-14.5); WBC 4.5 thou/uL (4.0-11.0)
[2019-02-18 07:23] VITALS: BP 102/32
--- NOTE | 2019-02-18 10:41 | NUR ---
patient to have cardiac procedure . [facility] has a bed avail for Saturday if patient cont with need for post acute care. Updated patient and .
[2019-02-18 10:49] VITALS: BP 102/32
[2019-02-18 11:40] VITALS: BP 96/36
--- NOTE | 2019-02-18 13:48 | NUR ---
WOUND CARE FOLLOW UP; ROUNDING WITH DR POOL LARA AND [employer]IL[employer] ELECTRON[employer] ENGINEERING MANAGER. THE PATIENT IS UP IN THE CHAIR WHICH IS HIS NORMAL PRESENTATION. BILATERAL LE EDEMA IS MANAGED WITH LYMPHEDEMA WRAPS. RECOMMENDATIONS; NO CHANGES THIS TIME. DISCUSSED WITH STAFF
[2019-02-18 16:24] VITALS: BP 98/49
--- NOTE | 2019-02-18 18:32 | NUR ---
ASSUMED CARE OF PT AT SHIFT CHANGE. ASSESSMENTS CHARTED. MEDS GIVEN PER OCT. PT ALERT AND ORIENTED, VSS, DENIES PAIN. O2 SATS WNL ON ROOM AIR, DENIES CP OR SOB. SPOUSE AT BEDSIDE THROUGHOUT SHIFT. PT DIRUESING ADEQUATELY. APPETITE ADEQUATE. PT TO HAVE PACEMAKER PROCEDURE IN AM, CONSENTS SIGNED. PT TO HAVE HIBACLINS IN NIGHT AND MORNING-WILL RELAY TO NOC NURSE. LEGS CONTINUE TO BE WRAPPED. PT DENIES CONCERNS AT THIS TIME.
[2019-02-18 19:50] VITALS: BP 131/45
--- NOTE | 2019-02-19 03:21 | NUR ---
RECEIVED PT'S CARE AT 1900; PT. SLEEPING ON CHAIR; DURING ASSESSMENT AOX4; NO C/O PAIN; EDUCATED ABOUT NOT EATING OR DRINKING AFTER MIDNIGHT; ST. UNDERSTANDING; EXPLAINED ABOUT PREPARATION FOR PROCEDURE ON 02/19/19; ST. UNDERSTANDING; CHLOROXIDE BAD GIVEN EARLY ON THE NIGHT; BUTTOKCS DRESSING CHANGED; ABLE TO REST FOR A FEW HOURS DURING THE NIGHT; ASSESSMENT CHARGED; FOLLOWING POC; MONITORING; WILL PASS ON REPORT.
[2019-02-19 04:04] LABS: ALBUMIN 2.2 g/dL (3.4-5.0); CALCIUM 8.4 mg/dL (8.5-10.1); CREATININE 1.5 mg/dL (0.7-1.3); PHOSPHORUS 2.6 mg/dL (2.5-4.9)
[2019-02-19 04:35] VITALS: BP 103/44
[2019-02-19 04:38] LABS: ABSOLUTE NEUTROPHILS 3.9 thou/uL (1.4-8.2); BASOPHILS 0.9 % (0.0-2.0); EOSINOPHILS 1.3 % (0.0-3.0); HEMATOCRIT 34.8 % (42.0-52.0); HEMOGLOBIN 11.7 gm/dL (14.0-18.0); LYMPHOCYTES 10.1 % (24.0-44.0); MCH 29.2 pg (26.0-34.0); MCHC 33.7 g/dL (28.0-37.0); MCV 86.8 fL (80.0-100.0); PLATELET COUNT 182 thou/uL (150-400); POLYS 76.7 % (36.0-66.0); RBC 4.01 mil/uL (4.50-6.00); RDW 17.8 % (10.5-14.5); WBC 5.1 thou/uL (4.0-11.0)
[2019-02-19 07:56] VITALS: BP 107/43
[2019-02-19 09:13] VITALS: BP 107/43
--- NOTE | 2019-02-19 15:05 | NUR ---
PATIENT HAS DECIDED THAT HE WOULD LIKE TO COME TO ACUTE REHAB/[facility] FOR POST ACUTE CARE. PATIENT IS GETTING A PACE MAKER THIS DATE. POTENTIAL ADMISSION 02/20/19 IF PATIENT IS MEDICALLY STABLE AND READY TO COME TO REHAB.
--- NOTE | 2019-02-19 15:31 | NUR ---
Pt TRANSFERRED TO ICU FOLLOWING FAILED ATTEMPT AT PACEMAKER UPGRADE. WILL PLACE ON HOLD AT THIS TIME AND RESUME IF ORDERS RECEIVED. NOTE MD DISCUSSING COMFORT MEASURES.
--- NOTE | 2019-02-19 16:09 | NUR ---
Pt having pacemaker upgraded today. [facility] acute rehab can accept the pt tomorrow if medically cleared for dc. Pt and spouse agreeable to acute rehab at [place]. Care team updated.
[2019-02-19 16:31] VITALS: BP 93/50
[2019-02-19 17:50] LABS: CALCIUM 8.9 mg/dL (8.5-10.1); MAGNESIUM 1.9 mg/dL (1.8-2.4); POTASSIUM 4.5 mmol/L (3.5-5.1)
[2019-02-19 18:07] LABS: HEMATOCRIT 39.6 % (42.0-52.0); HEMOGLOBIN 12.5 gm/dL (14.0-18.0); MCH 28.9 pg (26.0-34.0); MCHC 31.7 g/dL (28.0-37.0); MCV 91.2 fL (80.0-100.0); RBC 4.34 mil/uL (4.50-6.00); RDW 18.5 % (10.5-14.5); WBC 5.3 thou/uL (4.0-11.0)
--- NOTE | 2019-02-19 18:13 | NUR ---
ASSUMED CARE OF PT AT SHIFT CHANGE. ASSESSMENTS CHARTED-- PT OFF UNIT DURING AFTERNOON ASSESSSMENT--, VSS, O2 SATS WNL ON ROOM AIR. PT UP X1 WITH WALKER TOLERATING WELL. PT VISITED WITH PT AND REWRAPPED LEG WRAPS. PT TO HAVE PACEMAKER UPGRADE TODAY, PT WENT DOWN FOR PROCEDURE, PROCEDURE ABORTED-- REFER TO PHYSICIAN NOTE REGARDING. PT RETURNED TO UNIT AT APPROX 1625 WITH SPOUSE AT BEDSIDE. PT ALERT AND ORIENTED UPON RETURN, NO C/O PAIN, PT AND SPOUSE TEARFUL REGARDING PACEMAKER PROCEDURE THIS SHIFT. PT CURRENTLY EATING WITH SPOUSE IN ROOM, DENIES NEEDS AT THIS TIME. CONTINUING TO MONITOR.
[2019-02-19 19:57] VITALS: BP 112/53
[2019-02-20 05:10] LABS: CALCIUM 8.8 mg/dL (8.5-10.1); CREATININE 1.8 mg/dL (0.7-1.3); PHOSPHORUS 3.5 mg/dL (2.5-4.9); POTASSIUM 3.7 mmol/L (3.5-5.1)
--- NOTE | 2019-02-20 05:15 | NUR ---
ASSUMED PT SHANNON AT 1900 WITH NO SIGN OF DISTRESS NOTED. PT IS ALERT AND ORIENTED. NO FAMILY AT BEDSIDE. PT IS LAYING IN BED. PT IS ASSISTED TO THE BATHROOM. ASSESSMENT CHARTED AND COMPLETED. PT IS SITTING IN CHAIR. SCHEDULED MEDS ADMINISTERED TO PT. PT TOLERATED PO INTAKE. SHOOK IS STILL IN PLACE. VITAL SIGNS STABLE. DENIES ANY FURTHER NEEDS AT THIS TIME.
[2019-02-20 06:00] VITALS: BP 98/41
[2019-02-20 08:04] VITALS: BP 100/45
--- NOTE | 2019-02-20 10:58 | NUR ---
AAO. EXPRESSES SADNESS R/T INABILITY TO TOLERATE CARDIOLOGY PROCEDURE. SLIDING SCALE INSULIN ORDERED. ASSISTED TO BEDSIDE CHAIR FOR BREAKFAST. LEGS ELEVATED, ABIGAIL WRAPS IN PLACE. LONG DISCUSSION WITH HIS ONCE SHE ARRIVED. SHE IS VERY ANXIOUS; EMOTIONAL SUPPORT OFFERED. WILL CONTINUE TO FOLLOW CLOSELY.
[2019-02-20 11:27] VITALS: BP 107/46
--- NOTE | 2019-02-20 15:06 | NUR ---
WANTS TO GO HOME TODAY WITH [facility].
[2019-02-20] MEDS ORDERED: ACIDOPHILUS1 EAC4 PO (15:12)
[2019-02-20] MEDS ORDERED: TYLENOL325 MG PO (15:12)
[2019-02-20] MEDS ORDERED: NOVOLOG100 UNIT/1 SUBQ ×2 (15:12→15:24)
[2019-02-20] MEDS ORDERED: METOLAZONE 5 MG5 MG PO (15:12)
[2019-02-20] MEDS ORDERED: COREG6.25 MG PO (15:12)
[2019-02-20 15:27] VITALS: BP 107/46
[2019-02-20 15:55] VITALS: BP 107/46
[2019-02-20] MEDS ORDERED: NOVOLOG MI100 UNIT/M SUBQ ×2 (16:04)
--- NOTE | 2019-02-20 16:13 | NUR ---
Turbine Attendant visited with the pt and his at bedside. Pacemaker upgrade was not completed yesterday as the pt was not able to tolerate the procedure. Palliative care consult recommended. Dr. Felton is out of town. Pt's goals for care, wishes and care needs discussed. Hospice services and philosphy of care presented. Pt and spouse agreeable. The pt is a DNR. He does not want to keep bouncing back in to the ER. He wants to have symptom management and quality of life be the focus. He wants to be at home. He does not want to pursue rehab or snf. Hospice options discussed. Referral called and faxed to [facility] for their cardiac program. They have accepted the pt and can admit to service tonight. Their liason is here at this time answering questions and reviewing the hospice benefit. Outside the hospital DNR completed and signed by the attending and pt. Pt to take the original home. Care team and the attending updated. Pt would perfer to go home today. Pt and declined transport home prefering to go home in their car. They have a neighbor who can assist getting the pt out of the car and into the house. They have a stair glide at home. The pt sleeps in his recliner. Wu cath discussed and pt prefers to go home with it due to weakness and increased lasix. Emotional support provided. Dc facility planner to fax dc orders and summary to [facility] for start of care this evening.
--- NOTE | 2019-02-20 16:56 | NUR ---
FAXED DC ORDERS/SUMMARY [facility] THEY WILL VISIT WITH PT THIS EVENING.
== END 2019-02-20 17:49 | disposition hospice, home (50) | DRG 291 ==
LOC: ER 10:43 → 2N 12:02 → EROBS 12:02 → 2N 17:19 → ICU 02-19 15:15 → 2N 02-19 15:33
PROVIDERS: Hospitalist; Internal Medicine; Internal Medicine Cardiovascular Disease; Nurse Practitioner; Nurse Practitioner Adult Health; Physician Assistant; ADMIT Internal Medicine
DX: I13.0 Hypertensive heart and chronic kidney disease with heart failure and stage 1 through stage 4 chronic kidney disease, or unspecified chronic kidney disease (principal); E43 Unspecified severe protein-calorie malnutrition; I50.43 Acute on chronic combined systolic (congestive) and diastolic (congestive) heart failure; L03.116 Cellulitis of left lower limb; L03.115 Cellulitis of right lower limb; N17.9 Acute kidney failure, unspecified; E78.5 Hyperlipidemia, unspecified; Z66 Do not resuscitate; I25.10 Atherosclerotic heart disease of native coronary artery without angina pectoris; N40.0 Benign prostatic hyperplasia without lower urinary tract symptoms; I49.5 Sick sinus syndrome; I87.2 Venous insufficiency (chronic) (peripheral); L30.9 Dermatitis, unspecified; E11.22 Type 2 diabetes mellitus with diabetic chronic kidney disease; E87.70 Fluid overload, unspecified; I25.5 Ischemic cardiomyopathy; E83.42 Hypomagnesemia; N18.9 Chronic kidney disease, unspecified; J84.10 Pulmonary fibrosis, unspecified; E87.6 Hypokalemia; Z53.8 Procedure and treatment not carried out for other reasons; Z98.49 Cataract extraction status, unspecified eye; Z95.1 Presence of aortocoronary bypass graft; Z95.0 Presence of cardiac pacemaker; Z88.0 Allergy status to penicillin; Z88.8 Allergy status to other drugs, medicaments and biological substances; Z68.26 Body mass index [BMI] 26.0-26.9, adult; Z79.82 Long term (current) use of aspirin; Z79.899 Other long term (current) drug therapy
CPT/HCPCS: 10081; 62110; 62900; 70005

== ENCOUNTER → 2019-02-09 | Outpatient (CLI) | payer OTHER ==
[~2019-02-09] MED LIST: ASPIR 8181 MG PO; COL-RITE250 MG PO; COLACE100 MG PO; DEMADEX20 MG PO; DOXYCYCLINE HYC50 MG PO; FLOMAX0.4 MG PO; KLOR-CON 10 ER10 MEQ PO; LIPITOR40 MG PO; NOVOLOG MI100 UNIT/M SUBQ; PROSCAR 5MG TABL5 M1 PO; URECHOLINE 10 M10 M1 PO; URECHOLINE25 MG PO; VITAMINC500 PO
== END ==
LOC: HYPER 06:16
DX: E11.622 Type 2 diabetes mellitus with other skin ulcer (principal); L97.811 Non-pressure chronic ulcer of other part of right lower leg limited to breakdown of skin; L97.821 Non-pressure chronic ulcer of other part of left lower leg limited to breakdown of skin; I87.2 Venous insufficiency (chronic) (peripheral); R60.9 Edema, unspecified; Z79.4 Long term (current) use of insulin; Z85.6 Personal history of leukemia; Z87.891 Personal history of nicotine dependence